=== PATIENT | male | born 1980 | race Caucasian/White ===

== ENCOUNTER → 2020-09-24 | Emergency (ER) | payer OTHER ==
[~2020-09-24] VITALS: Ht 175.3 cm; Wt 70.3 kg
[~2020-09-24] MED LIST: AMOX1TAB5 PO; GABAPENTIN300 M2 PO; INTESTINEX680 M1 PO
== END | disposition home or self-care (01) ==
LOC: ER 17:00
DX: S51.012A Laceration without foreign body of left elbow, initial encounter (principal); W26.0XXA Contact with knife, initial encounter; Y93.89 Activity, other specified; Y92.018 Other place in single-family (private) house as the place of occurrence of the external cause; Y99.8 Other external cause status